=== PATIENT | female | born 1980 | race Caucasian/White ===

== ENCOUNTER 2018-02-05 14:50 | Emergency (ER) | payer OTHER ==
[~2018-02-05] VITALS: Ht 170.2 cm; Wt 74.8 kg
[2018-02-05] MEDS ORDERED: carBAMazepine 200 MG TAB PO ONE (16:15)
[2018-02-05 16:22] VITALS: BP 152/93
== END 2018-02-05 18:20 | disposition home or self-care (01) ==
LOC: ER 14:57
DX: R56.9 Unspecified convulsions (principal); R51 Headache; Z76.0 Encounter for issue of repeat prescription; Z88.0 Allergy status to penicillin; Z88.5 Allergy status to narcotic agent
CPT/HCPCS: 70450; 82962